=== PATIENT | male | born 1990 | race Caucasian/White ===

== ENCOUNTER 2019-01-12 01:51 | Emergency (ER) | payer SELFPAY ==
[~2019-01-12] VITALS: Ht 170.2 cm; Wt 70.9 kg
[2019-01-12] MEDS ORDERED: IBUPROFEN 600 MG TAB PO STA (02:08)
[2019-01-12] MEDS ORDERED: ACETAMINOPHEN 325 MG TAB PO ONE (02:15)
[2019-01-12 03:00] VITALS: BP 109/78
== END 2019-01-12 02:40 | disposition home or self-care (01) ==
LOC: FSED 01:51
DX: H16.133 Photokeratitis, bilateral (principal); Y99.0 Civilian activity done for income or pay
CPT/HCPCS: 99283